=== PATIENT | female | born 1960 | race Caucasian/White ===

== ENCOUNTER 2016-08-16 12:45 | Outpatient (CLI) | payer BC | END 2016-08-16 20:21 | disposition home or self-care (01) | LOC: SMA 12:45 | PROVIDERS: ATTEND Obstetrics & Gynecology | DX: Z12.31 Encounter for screening mammogram for malignant neoplasm of breast (principal); R92.0 Mammographic microcalcification found on diagnostic imaging of breast | CPT/HCPCS: G0202 ==

== ENCOUNTER 2017-10-18 12:32 | Outpatient (CLI) | payer BC | END 2017-10-18 19:39 | disposition home or self-care (01) | LOC: SMA 12:32 | PROVIDERS: ATTEND Obstetrics & Gynecology | DX: Z12.31 Encounter for screening mammogram for malignant neoplasm of breast (principal) | CPT/HCPCS: 77067 ==

== ENCOUNTER 2019-01-16 12:33 | Outpatient (CLI) | payer BC | END 2019-01-16 21:10 | disposition home or self-care (01) | LOC: SMA 12:33 | PROVIDERS: ATTEND Obstetrics & Gynecology | DX: Z12.31 Encounter for screening mammogram for malignant neoplasm of breast (principal) | CPT/HCPCS: 77067 ==

== ENCOUNTER 2020-01-21 08:54 | Outpatient (CLI) | payer BC | END 2020-01-21 21:06 | disposition home or self-care (01) | LOC: SMA 08:54 | PROVIDERS: ATTEND Obstetrics & Gynecology | DX: Z12.31 Encounter for screening mammogram for malignant neoplasm of breast (principal) | CPT/HCPCS: 77067 ==

== ENCOUNTER 2021-02-11 11:37 | Outpatient (CLI) | payer BC | END 2021-02-11 19:37 | disposition home or self-care (01) | LOC: SMA 11:37 | PROVIDERS: ATTEND Obstetrics & Gynecology | DX: Z12.31 Encounter for screening mammogram for malignant neoplasm of breast (principal) | CPT/HCPCS: 77067 ==

== ENCOUNTER 2021-04-20 10:07 | Outpatient (CLI) | payer BC | END 2021-04-20 19:09 | disposition home or self-care (01) | LOC: SUS 10:07 | PROVIDERS: ATTEND Obstetrics & Gynecology | DX: R92.2 Inconclusive mammogram (principal); Z79.890 Hormone replacement therapy | CPT/HCPCS: 76641 ==

== ENCOUNTER 2021-05-27 09:57 | Outpatient (CLI) | payer BC | END 2021-05-27 18:41 | disposition home or self-care (01) | LOC: SRD 09:57 | PROVIDERS: ATTEND Family Medicine | DX: Z12.2 Encounter for screening for malignant neoplasm of respiratory organs (principal); Z80.1 Family history of malignant neoplasm of trachea, bronchus and lung; M47.814 Spondylosis without myelopathy or radiculopathy, thoracic region | CPT/HCPCS: 71046-TC ==

== ENCOUNTER 2022-08-26 10:12 | Emergency (ER) | payer BC ==
[~2022-08-26] VITALS: Ht 157.5 cm; Wt 69.4 kg
[2022-08-26 10:27] VITALS: BP_SYST 132
[2022-08-26] MEDS ORDERED: LORazepam 1 MG TABLET PO ONE (10:45)
[2022-08-26 10:57] VITALS: BP_SYST 109
[2022-08-26 11:07] LABS: BASOPHILS % (AUTO) 0.8 % (0.0-2.0); EOSINOPHILS # (AUTO) 0.1 K/uL (0.0-0.4); EOSINOPHILS % (AUTO) 1.3 % (0.0-4.0); HEMATOCRIT 38.4 % (36-48); LYMPHOCYTES % (AUTO) 37.4 % (20.5-51.5); MEAN CORPUSCULAR HEMOGLOBIN 30 pg (27-31); MEAN CORPUSCULAR HGB CONC 34 % (32-36); MEAN CORPUSCULAR VOLUME 90 fL (79.0-98.0); MONOCYTES # (AUTO) 0.3 K/uL (0.0-1.0); MONOCYTES % (AUTO) 6.5 % (1.7-9.3); NEUTROPHILS # (AUTO) 2.8 K/uL (1.8-7.7); PLATELET COUNT (AUTO) 251 K/uL (130-430); RED BLOOD CELL COUNT(AUTO) 4.29 MIL/uL (4.2-6.2); RED CELL DISTRIBUTION WIDTH 14.2 % (9.0-15.0); WHITE BLOOD COUNT (AUTO) 5.2 K/uL (4.8-10.8)
[2022-08-26 11:25] LABS: ANION GAP 8 (5-15); CALCIUM 8.4 mg/dL (8.4-11.0); CHLORIDE 103 mmol/L (98-107); CREATININE 0.96 mg/dL (0.55-1.30); GFR AFRICAN AMERICAN 76 mL/min (>90); GLUCOSE 103 mg/dL (70-99); UREA NITROGEN, BLOOD 21 mg/dL (8-21)
[2022-08-26 11:32] LABS: ALANINE AMINOTRANSFERASE 28 U/L (12-78); ALBUMIN 3.7 g/dL (3.4-4.8); ASPARTATE AMINOTRANSFERASE 16 U/L (10-37); TOTAL BILIRUBIN 0.5 mg/dL (0.0-1.0)
[2022-08-26] MEDS ORDERED: LORA-259 PO (11:57)
[2022-08-26] MEDS ORDERED: FAMO20TA8 PO (11:57)
== END 2022-08-26 12:07 | disposition home or self-care (01) ==
LOC: SED 10:12
DX: R07.9 Chest pain, unspecified (principal); Z79.899 Other long term (current) drug therapy
CPT/HCPCS: 36415; 71045; 80053; 83880; 84484; 85025; 85379; 93005; 99285

== ENCOUNTER 2022-12-31 09:27 | Outpatient (CLI) | payer BC ==
[~2022-12-31 09:27] MED LIST: FAMO20TA8 PO; LORA-259 PO
== END 2022-12-31 18:30 | disposition home or self-care (01) ==
LOC: SRD 09:27
PROVIDERS: ATTEND Internal Medicine Infectious Disease
DX: C34.90 Malignant neoplasm of unspecified part of unspecified bronchus or lung (principal); J18.9 Pneumonia, unspecified organism; M47.814 Spondylosis without myelopathy or radiculopathy, thoracic region
CPT/HCPCS: 71046-TC